=== PATIENT | female | born 1990 | race Caucasian/White ===

== ENCOUNTER 2016-09-04 13:56 | Emergency (ER) | payer MEDICAID, OTHER ==
[~2016-09-04] VITALS: Ht 162.6 cm; Wt 64.0 kg
[2016-09-04 14:00] VITALS: BP 134/90; PULSE 76; RESP 16; TEMP 98.3; O2SAT 100
--- NOTE | 2016-09-04 14:26 | PD ---
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 She says she hasn't had her menstrual cycle since June. She says she's been having several days of abdominal pain , worse in the left lower quadrant, cramping, moderate severity. Initially she felt like it was just her menstrual cycle but it's been getting worse and her bleeding never came. She does feel little bit nauseous. She denies any vaginal discharge, vaginal bleeding, or dysuria. She's never been before. [facility] Past Medical History Medical History: Denies Significant Hx ?: Social History Tobacco Use: No Allergies-Medications (Allergen,Severity, Reaction): Coded Allergies: No Known Allergies (Unverified , 09/04/16) Review of Systems Except as stated in HPI: all other systems reviewed are Neg Physical Exam Narrative GENERAL:Well appearing, no acute distress SKIN: Warm and dry. HEAD: Atraumatic. Normocephalic. EYES: Pupils equal and round. No injection or drainage. ENT: Moist mucous membranes NECK: Trachea midline. CARDIOVASCULAR: Regular rate and rhythm. No murmur appreciated. RESPIRATORY: Clear to auscultation. Breath sounds equal bilaterally. GASTROINTESTINAL: Abdomen soft, diffusely mildly tender to palpation with no rebound or guarding. MUSCULOSKELETAL: No obvious deformities. NEUROLOGICAL: Awake and alert. No obvious cranial nerve deficits. Moving all extremities. PSYCHIATRIC: Appropriate mood and affect; insight and judgment normal. Data Data Last Documented VS Vital Signs Date Time Temp Pulse Resp B/P Pulse Ox O2 Delivery O2 Flow Rate FiO2 09/04/16 14:00 98.3 76 16 134/90 100 Orders Ed Poc Ultrasound (09/04/16 ) Complete Blood Count With Diff (09/04/16 14:20) Comprehensive Metabolic Panel (09/04/16 14:20) Lipase (09/04/16 14:20) Beta Hcg (Quant/Titer) (09/04/16 14:20) Urinalysis - C+S If Indicated (09/04/16 14:21) Us Pelvis (Ques Pr/Ect)W Trans (09/04/16 ) Labs Laboratory Tests Test 09/04/16 14:15 White Blood Count 7.8 TH/MM3 Red Blood Count 4.26 MIL/MM3 Hemoglobin 13.8 GM/DL Hematocrit 39.4 % Mean Corpuscular Volume 92.4 FL Mean Corpuscular Hemoglobin 32.4 PG Mean Corpuscular Hemoglobin 35.1 % Concent Red Cell Distribution Width 11.7 % Platelet Count 231 TH/MM3 Mean Platelet Volume 8.4 FL Neutrophils (%) (Auto) 75.0 % Lymphocytes (%) (Auto) 19.3 % Monocytes (%) (Auto) 4.9 % Eosinophils (%) (Auto) 0.4 % Basophils (%) (Auto) 0.4 % Neutrophils # (Auto) 5.9 TH/MM3 Lymphocytes # (Auto) 1.5 TH/MM3 Monocytes # (Auto) 0.4 TH/MM3 Eosinophils # (Auto) 0.0 TH/MM3 Basophils # (Auto) 0.0 TH/MM3 CBC Comment DIFF FINAL Differential Comment Urine Collection Type CLEAN CATCH Urine Color YELLOW Urine Turbidity CLEAR Urine pH 5.5 Urine Specific Bruno 1.005 Urine Protein NEG mg/dL Urine Glucose (UA) NEG mg/dL Urine Ketones NEG mg/dL Urine Occult Blood TRACE Urine Nitrite NEG Urine Bilirubin NEG Urine Leukocyte Esterase TRACE Urine RBC 0-3 /hpf Urine WBC 0-2 /hpf Urine Squamous Epithelial 6-8 /hpf Cells Microscopic Urinalysis Comment CULT NOT INDICATED Urine Collection Time 14:15 Sodium Level 140 MEQ/L Potassium Level 3.5 MEQ/L Chloride Level 105 MEQ/L Carbon Dioxide Level 28.4 MEQ/L Anion Gap 7 MEQ/L Blood Urea Nitrogen 8 MG/DL Creatinine 0.71 MG/DL Estimat Glomerular Filtration 99 ML/MIN Rate Random Glucose 105 MG/DL Calcium Level 8.8 MG/DL Total Bilirubin 0.3 MG/DL Aspartate Amino Transf 7 U/L (AST/SGOT) Alanine Aminotransferase 13 U/L (ALT/SGPT) Alkaline Phosphatase 47 U/L Total Protein 7.9 GM/DL Albumin 3.9 GM/DL Lipase 132 U/L Human Chorionic Gonadotropin, 159 MIU/ML Quant MDM Medical Decision Making Medical Screen Exam Complete: Yes Emergency Medical Condition: Yes Interpretation(s) Afebrile, no tachycardia, normotensive No leukocytosis Electrolytes are reassuring HCG is 159 Urinalysis: No Infection Differential Diagnosis Ectopic , intrauterine , ovarian cyst rupture, ovarian torsion Narrative Course This is a 26-year-old female who presents the emergency department with lower abdominal pain in the setting of early . Patient was placed in a monitor and an IV was established. [id number] ultrasound was unable to demonstrate an intrauterine . Pelvic ultrasound was obtained which confirms that and also does not identify an adnexal mass. Patient may have an early intrauterine or may have an early ectopic. Patient was instructed to return to the emergency department 2 days for repeat beta hCG. Diagnosis Primary Impression: Qualified Code: Z3A.01 - Less than 8 weeks gestation of Patient Instructions: General Instructions Additional Instructions: If you develop severe abdominal pain, lightheadedness or dizziness return to the emergency room. It is very important that he return to the emergency department 2 days for repeat blood work Med/Other Pt SpecificInfo: No Change to Meds Disposition: 01 DISCHARGE HOME Condition: Stable Iman Chan MD Sep 04, 2016 14:26
[2016-09-04 14:40] LABS: AUTOMATED NEUTROPHIL # 5.9 TH/MM3 (1.8-7.7); BASOPHIL % 0.4 % (0.0-2.0); EOSINOPHIL % 0.4 % (0.0-4.0); HEMATOCRIT 39.4 % (35.0-46.0); HEMO FLAGS DIFF FINAL; LYMPH % 19.3 % (9.0-44.0); LYMPHOCYTE # 1.5 TH/MM3 (1.0-4.8); MEAN CELL VOLUME 92.4 FL (80.0-100.0); MEAN CORPUSCULAR HEMOGLOBIN 32.4 PG (27.0-34.0); MEAN CORPUSCULAR HGB CONC 35.1 % (32.0-36.0); MONO % 4.9 % (0.0-8.0); PLATELET COUNT 231 TH/MM3 (150-450); RED BLOOD COUNT 4.26 MIL/MM3 (4.00-5.30); RED CELL DISTRIBUTION WIDTH 11.7 % (11.6-17.2); WHITE BLOOD COUNT 7.8 TH/MM3 (4.0-11.0)
[2016-09-04 14:45] LABS: BLOOD, URINE TRACE (NEG); GLUCOSE,URINE NEG (NEG); KETONE, URINE NEG (NEG); NITRITE,URINE NEG (NEG); PH, URINE 5.5 (5.0-8.5)
[2016-09-04 14:51] LABS: CHLORIDE 105 MEQ/L (98-107); POTASSIUM 3.5 MEQ/L (3.5-5.1); SODIUM (NA) 140 MEQ/L (136-145)
[2016-09-04 14:52] LABS: COMMENT (UR) CULT NOT INDICATED; CULTURE IF INDICATED CULT NOT INDICATED; METHOD OF COLLECTION CLEAN CATCH; RBC, URINE 0-3 /hpf (0-3); URINE COLOR YELLOW (YELLW/STRAW); WBC, URINE 0-2 /hpf (0-5)
[2016-09-04 14:55] LABS: ANION GAP 7 MEQ/L (5-15); BICARBONATE 28.4 MEQ/L (21.0-32.0)
[2016-09-04 14:56] LABS: BLOOD UREA NITROGEN 8 MG/DL (7-18)
[2016-09-04 14:58] LABS: ALT (GPT) 13 U/L (10-53); AST (GOT) 7 U/L (15-37)
[2016-09-04 14:59] LABS: GLOMERULAR FILTRATION RATE 99 ML/MIN (>89)
[2016-09-04 15:00] LABS: TOTAL BILIRUBIN ADULT 0.3 MG/DL (0.2-1.0)
[2016-09-04 15:01] LABS: ALKALINE PHOSPHATASE 47 U/L (45-117)
[2016-09-04 15:03] LABS: BETA HCG QUANT 159 MIU/ML (0-5)
--- NOTE | 2016-09-04 16:14 | RADHPO ---
EXAM DATE/TIME: 09/04/2016 15:32 [place] COMPARISON: No previous studies available for comparison. INDICATIONS : Left pelvic pain. LAB(S): Beta-hC MEDICAL HISTORY : . SURGICAL HISTORY : Knee surgery. Oral surgery. ENCOUNTER: Initial ACUITY: 2 days PAIN SCORE: 6/10 LOCATION: Bilateral pelvis MEASUREMENTS: RIGHT OVARY: 3.0 x 2.0 x 1.7 cm UTERUS: 7.6 x 3.4 x 3.9 cm ENDOMETRIAL STRIPE: 12 mm LEFT OVARY: 3.2 x 1.6 x 1.8 cm FINDINGS: UTERUS: The myometrium has homogeneous echotexture without mass. No evidence of gestational sac at this time . RIGHT OVARY: Ovary contains no mass or significant cystic lesion. LEFT OVARY: Ovary contains no mass or significant cystic lesion. MISCELLANEOUS: There is a small amount of uncomplicated appearing free fluid identified within the posterior cul-de- sac. CONCLUSION: Small amount of free fluid identified in the posterior cul-de-sac. There is no identifiable gestation al sac at this time. Given the HCG level of 159 this may still represent an early intrauterine pregna ncy. No evidence of adnexal mass.. Recommend followup ultrasound to evaluate for interval change if the patient remains clinically stabl e. Shagufta Marroquin MD on September 04, 2016 at 16:09 Board Certified Radiologist. This report was verified electronically.
== END 2016-09-04 16:35 | disposition home or self-care (01) ==
LOC: PHED 13:56
DX: O26.891 Other specified pregnancy related conditions, first trimester (principal); R10.32 Left lower quadrant pain; Z3A.01 Less than 8 weeks gestation of pregnancy
CPT/HCPCS: 76700; 76817; 80053; 81001; 83690; 84702; 85025

== ENCOUNTER 2016-09-06 17:47 | Emergency (ER) | payer MEDICAID, OTHER ==
[~2016-09-06] VITALS: Ht 162.6 cm; Wt 60.0 kg
[2016-09-06 17:51] VITALS: BP 132/86; PULSE 77; RESP 16; TEMP 98.2; O2SAT 99
[2016-09-06 18:56] LABS: BETA HCG QUANT 426 MIU/ML (0-5)
--- NOTE | 2016-09-06 19:27 | PD ---
HPI Chief Complaint: Related Problem Time Seen by Provider: 19:20 Travel History International Travel<30 days: No Contact w/Intl Traveler<30days: No Traveled to known affect area: No History of Present Illness HPI 26-year-old female presents to the ED for serial hCG evaluation. She complains of sharp left-sided abdominal pain. She denies vaginal bleeding, nausea or vomiting. LMP in June. She was seen at [facility] 2 days ago, hCG 159 at the time. Transvaginal ultrasound dated IUP approximately 2 weeks. [facility] Past Medical History ?: LMP: 05/2016 Social History Alcohol Use: No Tobacco Use: No Substance Use: No Allergies-Medications (Allergen,Severity, Reaction): Coded Allergies: No Known Allergies (Unverified , 09/06/16) Reported Meds & Prescriptions Reported Meds & Active Scripts Active No Active Prescriptions or Reported Medications Review of Systems Except as stated in HPI: all other systems reviewed are Neg Physical Exam Narrative GENERAL: Well-nourished, well-developed patient. SKIN: Warm and dry. HEAD: Normocephalic. EYES: No scleral icterus. No injection or drainage. NECK: Supple, trachea midline. No JVD or lymphadenopathy. CARDIOVASCULAR: Regular rate and rhythm without murmurs, gallops, or rubs. RESPIRATORY: Breath sounds equal bilaterally. No accessory muscle use. GASTROINTESTINAL: Abdomen soft, nondistended. Tender to palpation in the suprapubic region and left lower quadrant. MUSCULOSKELETAL: No cyanosis, or edema. BACK: Nontender without obvious deformity. No CVA tenderness. Data Data Last Documented VS Vital Signs Date Time Temp Pulse Resp B/P Pulse Ox O2 Delivery O2 Flow Rate FiO2 09/06/16 20:22 77 20 130/74 99 09/06/16 17:51 98.2 Room Air Orders Beta Hcg (Quant/Titer) (09/06/16 18:16) Ed Poc Ultrasound (09/06/16 ) Labs Laboratory Tests Test 09/06/16 18:15 Human Chorionic Gonadotropin, 426 MIU/ML Quant MDM Medical Decision Making Medical Screen Exam Complete: Yes Emergency Medical Condition: Yes Differential Diagnosis Threatened versus intrauterine versus ectopic versus other Narrative Course 26-year-old female presents to the ED for serial hCG evaluation. She complains of sharp left-sided abdominal pain. She denies vaginal bleeding, nausea or vomiting. LMP in June. She was seen at [facility] 2 days ago, hCG 159 at the time. Transvaginal ultrasound dated possible IUP approximately 2 weeks. Vitals reviewed. Physical exam reveals tenderness to palpation of the suprapubic and left lower quadrant areas. HCG 426 today. Review of the record reveals patient had full lab work drawn on 09/04, no concerning abnormalities noted. I discussed this patient with Dr. Vázquez. He performed a bedside ultrasound. Please see his notes for details. Discussed symptomatic treatment including Tylenol, warm compresses with the patient. She is instructed to return to the ED in 2 days for serial hCG draw, sooner if symptoms worsen or vaginal bleeding occurs. She indicated understanding of the instructions. She is amenable to the plan of care. She is stable and discharged home. Diagnosis Primary Impression: Abdominal pain in Qualified Code: O26.891 - Abdominal pain in , first trimester Referrals: Medical Assistant Ob Gyn Patient Instructions: Abdominal Pain in (ED), General Instructions Additional Instructions: Rest, hydrate. Take Tylenol as needed for abdominal discomfort. Warm compresses applied to the area may also help to improve your pain symptoms. Return to the ED in 2 days for hCG redrawn. Establish care with an mold inspector as soon as possible. Return to the ED for worsening of symptoms, vaginal bleeding. Scripts No Active Prescriptions or Reported Meds Disposition: 01 DISCHARGE HOME Condition: Stable Daisy Jaimes Sep 06, 2016 19:27
[2016-09-06 20:22] VITALS: BP 130/74; PULSE 77; RESP 20; O2SAT 99
--- NOTE | 2016-09-06 20:28 | PD ---
Data Data Last Documented VS Vital Signs Date Time Temp Pulse Resp B/P Pulse Ox O2 Delivery O2 Flow Rate FiO2 09/06/16 20:22 77 20 130/74 99 09/06/16 17:51 98.2 Room Air Orders Beta Hcg (Quant/Titer) (09/06/16 18:16) Ed Poc Ultrasound (09/06/16 ) Labs Laboratory Tests Test 09/06/16 18:15 Human Chorionic Gonadotropin, 426 MIU/ML Quant MDM Supervised Visit with JUSTIN: Yes Narrative Course I, Dr. Vázquez, have reviewed the advance practice practitioner's documentation and am in agreement, met with the patient face to face, made the diagnosis, and the medical decision making was done by me. *My assessment and Findings: Patient is a 26-year-old female presents to emergency department today for evaluation of left lower quadrant abdominal pain. Patient was here 2 days ago and had a beta hCG of approximately 100 now is 400. Patient abdomen is benign. Ultrasound at the bedside by me and has no free fluid in the pelvis. She appears well and in no apparent distress. She did have a pelvic exam he is a day and declines one at this time. Discussed with her that if she is still too early to adequately exclude ectopic but she certainly is not ruptured this time. Would recommend returning to the emergency department in 48 hours for repeat hCG and possibly ultrasound at that time. Discussed with her signs symptoms that should prompt emergent revisit including increasing abdominal pain fever or weakness. Procedures Procedure Narrative Bedside ultrasound transabdominal: Uterus is small widening is without obvious . No abdominal or pelvic free fluid. Diagnosis Primary Impression: Abdominal pain in Qualified Code: O26.891 - Abdominal pain in , first trimester Referrals: Ship'S Officer Patient Instructions: General Instructions, Abdominal Pain in (ED) Scripts No Active Prescriptions or Reported Meds Disposition: 01 DISCHARGE HOME Condition: Stable Sacha Vázquez MD Sep 06, 2016 20:28
== END 2016-09-06 20:35 | disposition home or self-care (01) ==
LOC: NETRI 17:47
DX: O26.891 Other specified pregnancy related conditions, first trimester (principal); R10.9 Unspecified abdominal pain; Z3A.01 Less than 8 weeks gestation of pregnancy
CPT/HCPCS: 84702; 99284